=== PATIENT | male | born 1965 | race Hispanic/Latino ===

== ENCOUNTER 2017-12-17 19:00 | Emergency (ER) | payer MEDICARE ==
[2017-12-17] MEDS ORDERED: BENZONATATE 100 MG CAPSULE PO ONE (19:50)
[2017-12-17] MEDS ORDERED: GUAIFENESIN SUGAR-FREE 100 MG/5 ML UDCUP ONE (19:50)
[2017-12-17] MEDS ORDERED: IPRATROPIUM/ALBUTEROL SULFATE 3 ML SOLUTION IH ONE (19:54)
[2017-12-17] MEDS ORDERED: DEXAMETHASONE SOD PHOSPHATE 10MG/ML 1ML VIAL ONE (21:11)
[2017-12-17] MEDS ORDERED: AZITHROMYCIN 250 MG TABLET PO ONE (21:11)
== END 2017-12-17 21:47 | disposition home or self-care (01) ==
LOC: EDH 19:00
DX: J20.9 Acute bronchitis, unspecified (principal); R93.8 Abnormal findings on diagnostic imaging of other specified body structures; I10 Essential (primary) hypertension; E78.5 Hyperlipidemia, unspecified; M19.90 Unspecified osteoarthritis, unspecified site; G20 Parkinson's disease
CPT/HCPCS: 71046; 87804 ×2; 94640; 99285; J1100

== ENCOUNTER → 2023-08-19 | Outpatient (CLI) | payer SELFPAY | END | disposition home or self-care (01) | LOC: RAH 10:33 | PROVIDERS: ATTEND Internal Medicine Cardiovascular Disease | DX: Z13.6 Encounter for screening for cardiovascular disorders (principal) | CPT/HCPCS: 75571 ==